=== PATIENT | female | born 2000 | race Caucasian/White ===

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

== ENCOUNTER 2022-04-09 18:17 | Inpatient (IN) | payer OTHER ==
[~2022-04-09] VITALS: Ht 162.6 cm; Wt 72.4 kg
[~2022-04-09 18:17] MED LIST: VENTAER INH; ZYRT10CA5 PO
[2022-04-09] MEDS ORDERED: NORG1TAB37 PO (18:24)
[2022-04-09] MEDS ORDERED: AMOX500C PO (18:24)
[2022-04-09] MEDS ORDERED: AMPICILLIN SOD/SULBACTAM SOD 3 GM in D5W MINI-BAG PLUS 100 ML IV ONE (19:00)
[2022-04-09] MEDS ORDERED: KETOROLAC 30 MG/ML 1ML VIAL IV ONE (19:00)
[2022-04-09] MEDS ORDERED: NS 1,000 ML IV ONE (19:15)
[2022-04-09 19:44] LABS: BASO % 0.2 % (0.0-1.0); EOS % 0.1 % (0.0-3.0); HEMATOCRIT 38.6 % (36.0-47.0); HEMOGLOBIN 12.9 g/dl (12.0-15.5); LYMPH # 1.6 10^3/uL (1.5-5.0); LYMPH % 8.2 % (24.0-44.0); MEAN CORPUSCULAR HEMOGLOBIN 28.7 pg (27.0-33.0); MEAN CORPUSCULAR HGB CONC 33.4 g/dl (32.0-36.5); MEAN CORPUSCULAR VOLUME 85.8 fl (80.0-96.0); MONO # 1.5 10^3/uL (0.0-0.8); MONO % 7.3 % (2.0-8.0); NEUTROPHILS # 16.7 10^3/uL (1.5-8.5); NEUTROPHILS % 83.6 % (36.0-66.0); PLATELET COUNT, AUTOMATED 275 10^3/uL (150-450)
[2022-04-09 20:09] LABS: HCG, SERUM QUANTITATIVE 3.1 MIU/ML (<4.2)
[2022-04-09 20:17] LABS: C REACTIVE PROTEIN QUANTITATIV 32.3 MG/DL (<1.0)
[2022-04-09 20:19] LABS: RSV AMPLIFICATION NEGATIVE (NEGATIVE)
[2022-04-09] MEDS ORDERED: ISOVUE-370 76% 100ML VIAL As Ordered ONE (20:34)
[2022-04-09 20:44] LABS: ERYTHROCYTE SEDIMENTATION RATE 58 mm/hr (0-20)
[2022-04-09] MEDS ORDERED: IBUP-1720 PO (20:45)
[2022-04-09] MEDS ORDERED: HOME MED LIST COMPLETE! XX SCH (20:45)
[2022-04-09] MEDS ORDERED: ACET-683 PO (20:45)
[2022-04-09] MEDS ORDERED: CETI-24 PO (20:45)
[2022-04-09] MEDS ORDERED: LIDOCAINE W/EPINEPHRINE 1% 20ML VIAL As Ordered ONE (22:53)
[2022-04-09 23:25] LABS: MONO REFLEX EBV COMP NEGATIVE (NEGATIVE)
[2022-04-10] MEDS: AMPICILLIN SOD/SULBACTAM SOD 3 GM in D5W MINI-BAG PLUS 100 ML IV SCH ×4 (03:14→20:13)
[2022-04-10 09:15] VITALS: BP 136/88
[2022-04-10 09:30] LABS: BASO % 0.2 % (0.0-1.0); HEMATOCRIT 38.7 % (36.0-47.0); HEMOGLOBIN 12.6 g/dl (12.0-15.5); LYMPH # 0.7 10^3/uL (1.5-5.0); LYMPH % 5.2 % (24.0-44.0); MEAN CORPUSCULAR HEMOGLOBIN 28.1 pg (27.0-33.0); MEAN CORPUSCULAR HGB CONC 32.6 g/dl (32.0-36.5); MEAN CORPUSCULAR VOLUME 86.4 fl (80.0-96.0); MONO # 0.2 10^3/uL (0.0-0.8); MONO % 1.3 % (2.0-8.0); NEUTROPHILS # 12.3 10^3/uL (1.5-8.5); NEUTROPHILS % 92.3 % (36.0-66.0); PLATELET COUNT, AUTOMATED 320 10^3/uL (150-450); RED BLOOD COUNT 4.48 10^6/uL (4.00-5.40); WHITE BLOOD COUNT 13.3 10^3/uL (4.0-10.0)
[2022-04-10] MEDS: KETOROLAC 30 MG/ML 1ML VIAL IV PRN ×2 (09:51→17:54)
[2022-04-10 10:05] LABS: ALBUMIN 3.2 G/DL (3.2-5.2); ALKALINE PHOSPHATASE 77 U/L (46-116); ALT/SGPT 9 U/L (7.0-40); AST/SGOT 9 U/L (<34); BILIRUBIN,TOTAL 0.3 MG/DL (0.3-1.2); BLOOD UREA NITROGEN 7 MG/DL (9-23); CALCIUM LEVEL 9.4 MG/DL (8.5-10.1); CARBON DIOXIDE LEVEL 27 MMOL/L (20-31); CHLORIDE LEVEL 100 MMOL/L (98-107); CREATININE FOR GFR 0.53 MG/DL (0.55-1.30); GLUCOSE, FASTING 136 MG/DL (60-100); POTASSIUM SERUM 3.8 MMOL/L (3.5-5.1); SODIUM LEVEL 137 MMOL/L (136-145); TOTAL PROTEIN 7.6 G/DL (5.7-8.2)
[2022-04-10] MEDS: CEPACOL LOZENGE PO PRN ×2 (10:34→20:25)
[2022-04-10 11:45] LABS: HCG, SERUM QUANTITATIVE 2.7 MIU/ML (<4.2)
[2022-04-10 11:57] LABS: HCG, SERUM QUALITATIVE NEGATIVE (NEGATIVE)
[2022-04-10] MEDS: NS 1,000 ML IV SCH ×2 (13:02→20:13)
[2022-04-10 16:10] VITALS: BP 126/87
[2022-04-10] MEDS: ACETAMINOPHEN TAB 650MG DOSE (2X325MG) PO PRN (18:13)
[2022-04-10 20:00] VITALS: BP 113/62
[2022-04-11] VITALS: BP 108/53
[2022-04-11] MEDS: AMPICILLIN SOD/SULBACTAM SOD 3 GM in D5W MINI-BAG PLUS 100 ML IV SCH ×4 (02:08→19:55)
[2022-04-11 06:00] VITALS: BP 113/57
[2022-04-11 06:38] LABS: BASO % 0.1 % (0.0-1.0); HEMOGLOBIN 11.1 g/dl (12.0-15.5); LYMPH # 1.2 10^3/uL (1.5-5.0); MEAN CORPUSCULAR HEMOGLOBIN 28.3 pg (27.0-33.0); MEAN CORPUSCULAR HGB CONC 32.6 g/dl (32.0-36.5); MEAN CORPUSCULAR VOLUME 86.7 fl (80.0-96.0); MONO # 0.6 10^3/uL (0.0-0.8); MONO % 3.7 % (2.0-8.0); NEUTROPHILS # 13.4 10^3/uL (1.5-8.5); NEUTROPHILS % 87.5 % (36.0-66.0); PLATELET COUNT, AUTOMATED 306 10^3/uL (150-450); RED BLOOD COUNT 3.92 10^6/uL (4.00-5.40); WHITE BLOOD COUNT 15.3 10^3/uL (4.0-10.0)
[2022-04-11 08:03] LABS: ALBUMIN 2.7 G/DL (3.2-5.2); ALKALINE PHOSPHATASE 63 U/L (46-116); ALT/SGPT < 9 U/L (7.0-40); AST/SGOT 7.99999 U/L (<34); BILIRUBIN,TOTAL 0.3 MG/DL (0.3-1.2); BLOOD UREA NITROGEN 9 MG/DL (9-23); CALCIUM LEVEL 8.6 MG/DL (8.5-10.1); CARBON DIOXIDE LEVEL 25 MMOL/L (20-31); CHLORIDE LEVEL 104 MMOL/L (98-107); CREATININE FOR GFR 0.49 MG/DL (0.55-1.30); GLUCOSE, FASTING 134 MG/DL (60-100); POTASSIUM SERUM 4.1 MMOL/L (3.5-5.1); SODIUM LEVEL 139 MMOL/L (136-145); TOTAL PROTEIN 6.2 G/DL (5.7-8.2)
[2022-04-11] MEDS: ACETAMINOPHEN TAB 650MG DOSE (2X325MG) PO PRN ×2 (08:54→22:20)
[2022-04-11] MEDS: NS 1,000 ML IV SCH ×2 (08:55→19:55)
[2022-04-11 12:00] VITALS: BP 125/75
[2022-04-11] MEDS: KETOROLAC 30 MG/ML 1ML VIAL IV PRN (16:43)
[2022-04-11 18:07] LABS: EBV AB TO NUCLEAR ANTIGEN >600.0 U/mL (0.0-17.9); EBV VIRAL CAPSID AG IgM <36.0 U/mL (0.0-35.9)
[2022-04-11] MEDS: CEPACOL LOZENGE PO PRN (19:59)
[2022-04-12] MEDS: AMPICILLIN SOD/SULBACTAM SOD 3 GM in D5W MINI-BAG PLUS 100 ML IV SCH ×3 (02:07→13:27)
[2022-04-12] MEDS: NS 1,000 ML IV SCH (06:07)
[2022-04-12 06:42] LABS: HEMATOCRIT 33.2 % (36.0-47.0); MEAN CORPUSCULAR HEMOGLOBIN 28.8 pg (27.0-33.0); MEAN CORPUSCULAR HGB CONC 33.1 g/dl (32.0-36.5); MEAN CORPUSCULAR VOLUME 86.9 fl (80.0-96.0); PLATELET COUNT, AUTOMATED 313 10^3/uL (150-450); RED BLOOD COUNT 3.82 10^6/uL (4.00-5.40)
[2022-04-12 07:10] LABS: ALBUMIN 2.7 G/DL (3.2-5.2); ALKALINE PHOSPHATASE 59 U/L (46-116); ALT/SGPT < 9 U/L (7.0-40); AST/SGOT 12 U/L (<34); BILIRUBIN,TOTAL 0.3 MG/DL (0.3-1.2); BLOOD UREA NITROGEN 8 MG/DL (9-23); CALCIUM LEVEL 8.5 MG/DL (8.5-10.1); CARBON DIOXIDE LEVEL 22 MMOL/L (20-31); CHLORIDE LEVEL 106 MMOL/L (98-107); CREATININE FOR GFR 0.52 MG/DL (0.55-1.30); GLUCOSE, FASTING 127 MG/DL (60-100); POTASSIUM SERUM 4.1 MMOL/L (3.5-5.1); SODIUM LEVEL 140 MMOL/L (136-145)
[2022-04-12 08:00] VITALS: BP 131/75
[2022-04-12] MEDS ORDERED: AMOX875T2 PO (10:13)
== END 2022-04-12 14:55 | disposition home or self-care (01) | DRG 97 ==
LOC: M ED 18:17 → M ED INP 04-10 00:31 → ENRESERV 04-10 08:05 → M PED 04-10 09:05 → OBSVTOIN 04-11 10:22
PROVIDERS: ADMIT Internal Medicine; ATTEND Internal Medicine
PROC: 0C9P0ZZ Drainage of Tonsils, Open Approach (ICD-10-PCS; principal; 2022-04-09)
DX: J03.00 Acute streptococcal tonsillitis, unspecified (principal); Z79.2 Long term (current) use of antibiotics; Z20.822 Contact with and (suspected) exposure to COVID-19; Z79.899 Other long term (current) drug therapy

== ENCOUNTER 2022-04-14 12:25 | Emergency (ER) | payer OTHER ==
[~2022-04-14] VITALS: Ht 165.1 cm; Wt 72.7 kg
[~2022-04-14 12:25] MED LIST changes: +ACET-683 PO; +AMOX500C PO; +AMOX875T2 PO; +CETI-24 PO; +IBUP-1720 PO; +NORG1TAB37 PO
[2022-04-14] MEDS ORDERED: NS 1,000 ML IV ONE (14:25)
[2022-04-14] MEDS ORDERED: ISOVUE-370 76% 100ML VIAL As Ordered ONE (14:52)
[2022-04-14 15:19] LABS: HEMATOCRIT 40.6 % (36.0-47.0); HEMOGLOBIN 13.5 g/dl (12.0-15.5); MEAN CORPUSCULAR HEMOGLOBIN 28.4 pg (27.0-33.0); MEAN CORPUSCULAR HGB CONC 33.3 g/dl (32.0-36.5); MEAN CORPUSCULAR VOLUME 85.3 fl (80.0-96.0); PLATELET COUNT, AUTOMATED 395 10^3/uL (150-450); RED BLOOD COUNT 4.76 10^6/uL (4.00-5.40); WHITE BLOOD COUNT 12.6 10^3/uL (4.0-10.0)
[2022-04-14] MEDS ORDERED: ACETAMINOPHEN 1000MG 100ML IV BAG IV ONE (15:30)
[2022-04-14 15:54] LABS: ATYPICAL LYMPH 1 % (0-5); LYMPHOCYTES 31 % (16-44); METAMYELOCYTES 2 % (0-0); MONOCYTES 7 % (0-5); NEUTROPHILS 57 % (28-66); PLASMA CELL 1 % (0-0); PLATELET ESTIMATE NORMAL (NORMAL); TOXIC GRANULATION 1+
[2022-04-14] MEDS ORDERED: LIDOCAINE W/EPINEPHRINE 1% 20ML VIAL SC ONE (15:55)
[2022-04-14 15:56] LABS: ERYTHROCYTE SEDIMENTATION RATE 28 mm/hr (0-20)
[2022-04-14] MEDS ORDERED: NORCO 5/325MG TABLET (HOME DOSE PACK) PO ONE (17:40)
[2022-04-14 17:52] VITALS: BP 123/68
== END 2022-04-14 17:56 | disposition home or self-care (01) ==
LOC: M ED 12:25
DX: K65.1 Peritoneal abscess (principal); J03.90 Acute tonsillitis, unspecified; K58.9 Irritable bowel syndrome, unspecified; Z79.899 Other long term (current) drug therapy
CPT/HCPCS: 70491; 80047; 84702; 85025; 85652; 86140; 87070; 87075; 87076; 87205; 96361; 96374; 99283; J0131

== ENCOUNTER 2022-09-01 18:04 | Emergency (ER) | payer OTHER ==
[~2022-09-01] VITALS: Ht 162.6 cm; Wt 72.0 kg
[2022-09-01] MEDS ORDERED: ACET-683 PO (18:26)
[2022-09-01] MEDS ORDERED: CEPH500C (18:26)
[2022-09-01] MEDS ORDERED: AMPICILLIN SOD/SULBACTAM SOD 3 GM in D5W MINI-BAG PLUS 100 ML IV ONE (18:50)
[2022-09-01] MEDS ORDERED: NS 1,000 ML IV ONE (18:50)
[2022-09-01 19:26] LABS: BASO % 0.1 % (0.0-1.0); HEMATOCRIT 38.1 % (36.0-47.0); HEMOGLOBIN 12.9 g/dl (12.0-15.5); LYMPH # 1.4 10^3/uL (1.5-5.0); LYMPH % 16.5 % (24.0-44.0); MEAN CORPUSCULAR HEMOGLOBIN 28.4 pg (27.0-33.0); MEAN CORPUSCULAR HGB CONC 33.9 g/dl (32.0-36.5); MEAN CORPUSCULAR VOLUME 83.7 fl (80.0-96.0); MONO # 0.7 10^3/uL (0.0-0.8); MONO % 7.8 % (2.0-8.0); NEUTROPHILS # 6.4 10^3/uL (1.5-8.5); NEUTROPHILS % 75.4 % (36.0-66.0); PLATELET COUNT, AUTOMATED 264 10^3/uL (150-450); RED BLOOD COUNT 4.55 10^6/uL (4.00-5.40); WHITE BLOOD COUNT 8.6 10^3/uL (4.0-10.0)
[2022-09-01] MEDS ORDERED: ISOVUE-370 76% 100ML VIAL As Ordered ONE (19:37)
[2022-09-01 19:58] LABS: ERYTHROCYTE SEDIMENTATION RATE 64 mm/hr (0-20)
[2022-09-01 20:46] VITALS: BP 127/68
[2022-09-01] MEDS ORDERED: PRED20TA PO (20:48)
[2022-09-01] MEDS ORDERED: OFLO5DRO OD (20:48)
[2022-09-01] MEDS ORDERED: AMOX875T2 PO (20:48)
== END 2022-09-01 21:04 | disposition home or self-care (01) ==
LOC: M ED 18:04
DX: J03.00 Acute streptococcal tonsillitis, unspecified (principal); H10.31 Unspecified acute conjunctivitis, right eye; K58.9 Irritable bowel syndrome, unspecified; Z79.2 Long term (current) use of antibiotics; Z79.52 Long term (current) use of systemic steroids; Z79.899 Other long term (current) drug therapy
CPT/HCPCS: 70491; 80047; 83605; 84702; 85025; 85652; 86140; 87040; 96365; 96375; 99283; J0295; J1100; Q9967

== ENCOUNTER 2025-04-29 12:19 | Emergency (ER) | payer OTHER, SELFPAY ==
[~2025-04-29] VITALS: Ht 162.6 cm; Wt 97.1 kg
[~2025-04-29 12:19] MED LIST changes: +CEPH500C; +OFLO5DRO OD; +PRED20TA PO
[2025-04-29] MEDS: NS (Normal Saline) 0.9% 1,000 ML IV ONE (13:02)
[2025-04-29 13:03] LABS: BASO # 0.1 10^3/uL (0.0-0.2); BASO % 0.7 % (0.0-1.0); EOS # 0.0 10^3/uL (0.0-0.5); EOS % 0.6 % (0.0-3.0); LYMPH # 1.1 10^3/uL (1.5-5.0); LYMPH % 16.1 % (24.0-44.0); MONO # 0.5 10^3/uL (0.0-0.8); MONO % 7.5 % (2.0-8.0); NEUTROPHILS # 5.2 10^3/uL (1.5-8.5); NEUTROPHILS % 75.0 % (36.0-66.0); PLATELET COUNT, AUTOMATED 457 10^3/uL (150-450)
[2025-04-29 13:14] LABS: KETONE, URINE AUTO RFX NEGATIVE (NEGATIVE); NITRITE, URINE AUTO RFX NEGATIVE (NEGATIVE); RBC, URINE AUTO RFX 4 /HPF (0-3); SQUAM EPITHELIAL CELL UR AURFX 6 /HPF (0-6)
[2025-04-29 13:34] LABS: LEUKOCYTE ESTERASE UR AUTO RFX 2+ (NEGATIVE); WBC, URINE AUTO RFX 19 /HPF (0-3)
[2025-04-29 13:35] LABS: ALT/SGPT 337 U/L (7.0-40); AST/SGOT 607 U/L (<34); CALCIUM LEVEL 9.9 MG/DL (8.5-10.1); CARBON DIOXIDE LEVEL 26 MMOL/L (20-31); CHLORIDE LEVEL 103 MMOL/L (98-107); CREATININE FOR GFR 0.67 MG/DL (0.55-1.30); GLOMERULAR FILTRATION RATE > 90.0 (>60); HCG, SERUM QUALITATIVE NEGATIVE (NEGATIVE); POTASSIUM SERUM 4.2 MMOL/L (3.5-5.1); SODIUM LEVEL 139 MMOL/L (136-145)
[2025-04-29] MEDS: KETOROLAC 30 MG/ML 1 ML VIAL IV ONE (13:47)
[2025-04-29] MEDS ORDERED: ONDA-282 PO (15:14)
[2025-04-29 15:15] LABS: HEPATITIS C VIRUS ABY INDEX 0.06 INDEX (<0.8)
[2025-04-29 15:20] VITALS: BP 124/66; TEMP 98.6; O2SAT 100
== END 2025-04-29 15:24 | disposition home or self-care (01) ==
LOC: M ED 12:19
DX: R94.5 Abnormal results of liver function studies (principal); K80.20 Calculus of gallbladder without cholecystitis without obstruction; K58.9 Irritable bowel syndrome, unspecified
CPT/HCPCS: 76705; 80048; 80074; 80076; 81001; 83690; 84703; 85025; 87086; 96361; 96374; 96375; 99284; J1885; J2765